=== PATIENT | female | born 1985 | race Caucasian/White ===

== ENCOUNTER 2021-08-14 12:22 | Outpatient (CLI) | payer BC ==
[2021-08-14 13:19] LABS: Bilirubin Neg (Negative); Blood, Urine Negative (Negative); Clarity Clear (Clear); Glucose, Urine (Dipstick) Normal (Negative); Ketone, Urine Negative (Negative); Leukocyte 500 (Negative); Nitrite Negative (Negative); Protein, Urine (Dipstick) Negative (Neg-Trace); Specific Gravity, Urine 1.015 (1.002-1.036); Urobilinogen Normal mg/dL (Less than 2)
[2021-08-14 13:38] LABS: Bacteria/HPF 1+ HPF (None Seen); RBC/HPF 0-3 HPF (0-3)
[2021-08-15 08:37] LABS: SARS-CoV-2 PCR by NAA Not Detected (NotDetected)
== END 2021-08-14 12:23 | disposition home or self-care (01) ==
LOC: LABBT 12:22
PROVIDERS: ATTEND Urology
DX: Z01.812 Encounter for preprocedural laboratory examination (principal); T83.71 Erosion of implanted mesh and other prosthetic materials to surrounding organ or tissue; Z20.822 Contact with and (suspected) exposure to COVID-19
CPT/HCPCS: 81001; 87086; U0003; U0005

== ENCOUNTER 2021-08-17 06:37 | Day surgery (SDC) | payer BC ==
[2021-08-14 11:43] VITALS: BMI 24.3
[2021-08-17] MEDS ORDERED: Lidocaine 1% MPF 2 ML VIAL ONE (07:01)
[2021-08-17] MEDS ORDERED: Midazolam HCl 2 mg/2 ml Vial ONE (07:58)
[2021-08-17] MEDS ORDERED: Famotidine/PF 20 mg/2ml Vial ONE (08:03)
[2021-08-17] MEDS ORDERED: Fentanyl 100 MCG/2 ML VIAL ONE (08:03)
[2021-08-17] MEDS ORDERED: Bupivacaine 0.25% HCL 30 ML VIAL ONE (08:08)
[2021-08-17] MEDS ORDERED: ceFAZolin 2 GM/Dextrose 50 ML IVPB ONE (08:16)
[2021-08-17] MEDS ORDERED: Ketorolac Tromethamine 30 MG/ML VIAL ONE ×2 (08:24→10:36)
[2021-08-17] MEDS ORDERED: PROPOFOL 200 MG/20 ML VIAL ONE (08:24)
[2021-08-17] MEDS ORDERED: Metoclopramide HCl 10 MG/2 ML VIAL ONE (08:24)
[2021-08-17] MEDS ORDERED: Ondansetron PF 4 MG/2 ML Vial ONE (08:24)
[2021-08-17] MEDS ORDERED: Dexamethasone 20 MG/5 ML VIAL ONE (08:24)
[2021-08-17] MEDS ORDERED: Lidocaine 1% PF 5 ML VIAL ONE (08:24)
== END 2021-08-17 10:20 | disposition home or self-care (01) ==
LOC: SDC 06:37
PROVIDERS: ATTEND Urology
PROC: 0UJH7ZZ Inspection of Vagina and Cul-de-sac, Via Natural or Artificial Opening (ICD-10-PCS; principal; 2021-08-17)
DX: T81.31XA Disruption of external operation (surgical) wound, not elsewhere classified, initial encounter (principal); K21.9 Gastro-esophageal reflux disease without esophagitis; Z79.890 Hormone replacement therapy; Z79.899 Other long term (current) drug therapy; Z88.1 Allergy status to other antibiotic agents; Z88.5 Allergy status to narcotic agent; Z88.8 Allergy status to other drugs, medicaments and biological substances; Z91.040 Latex allergy status; Z91.048 Other nonmedicinal substance allergy status
CPT/HCPCS: J0690; J1100; J1885; J2250; J2405; J2704; J2765; J3010; S0020; S0028